=== PATIENT | female | born 1990 | race Native Hawaiian/Other Pacific Islander ===

== ENCOUNTER 2017-03-03 07:41 | Inpatient (IN) ==
[2017-03-03] MEDS ORDERED: PEPCID PO PRN (08:15)
[2017-03-03] MEDS ORDERED: SODIUM CHLORIDE 0.9% INJ SCH (08:15)
[2017-03-03] MEDS ORDERED: REGLAN PO ONE (08:15)
[2017-03-03] MEDS ORDERED: KEFZOL 1 GM/D5W 1 GM/50 ML IVPB IV PRN (08:15)
[2017-03-03] MEDS ORDERED: TYLENOL PO PRN (08:15)
[2017-03-03] MEDS ORDERED: STADOL IV PRN (08:15)
[2017-03-03] MEDS ORDERED: PEPCID IV PRN (08:15)
[2017-03-03] MEDS ORDERED: ZOFRAN IV PRN (08:15)
[2017-03-03] MEDS ORDERED: PITOCIN 30 UNITS/LR 30 UNITS/500 ML IV.SOLN IV SCH (08:15)
[2017-03-03] MEDS ORDERED: PEPCID PO ONE (08:15)
[2017-03-03] MEDS ORDERED: LR 500 ML IV ONE (08:15)
[2017-03-03 08:21] LABS: URINE SOURCE VOIDED
[2017-03-03 08:42] LABS: BILIRUBIN URINE NEGATIVE (NEGATIVE); BLOOD URINE 1+ (NEGATIVE); CLARITY CLEAR (CLEAR); COLOR YELLOW; GLUCOSE URINE NEGATIVE (NEGATIVE); LEUKOCYTES URINE NEGATIVE (NEGATIVE); NITRITE URINE NEGATIVE (NEGATIVE); PROTEIN URINE NEGATIVE (NEGATIVE); UROBILINOGEN URINE NORMAL
[2017-03-03] MEDS: LR 1,000 ML IV SCH ×2 (08:45→09:58)
[2017-03-03 08:55] LABS: MANUAL DIFF NEEDED? NO
[2017-03-03] MEDS ORDERED: MINERAL OIL MISC ONE ×2 (08:55→13:00)
[2017-03-03] MEDS ORDERED: XYLOCAINE-MPF 1% INJ ONE ×2 (08:56→13:00)
[2017-03-03 08:57] LABS: BASO% 0.2 % (0.0-0.8); EOS# 0.29 X1000 (0.0-0.7); EOS% 2.3 % (0.0-10.0); HEMATOCRIT 38.6 % (37.0-47.0); HEMOGLOBIN 13.3 g/dL (12.0-16.0); IMM GRAN# 0.04 X1000 (0.0-0.04); IMM GRAN% 0.3 % (0.0-0.5); LYMPH# 1.82 X1000 (1.2-3.4); LYMPH% 14.1 % (20.5-51.1); MCH 30.9 PG (27-31); MCHC 34.5 g/dL (33-37); MCV 89.6 FL (81-99); MONO# 0.88 X1000 (0.11-0.59); MONO% 6.8 % (1.7-9.3); MPV 11.2 FL (7.4-10.4); NEUT% 76.3 % (42.2-75.2); PLT 207 X1000 (130-400); RBC 4.31 XMIL (4.2-5.4)
[2017-03-03] MEDS ORDERED: FENTANYL-BUPIV-NS 2 MCG-0.1% 200 ML EPIDURAL PRN (09:09)
[2017-03-03] MEDS ORDERED: PITOCIN 30 UNITS/LR 30 UNITS/500 ML IV.SOLN IV ONE (16:01)
[2017-03-03] MEDS ORDERED: PERI MEDS (DERMOPLAST/NUPERCAINAL/TUCKS) MISC PRN (16:01)
[2017-03-03] MEDS ORDERED: PERCOCET-10 PO PRN (16:01)
[2017-03-03] MEDS ORDERED: PERCOCET-5 PO PRN (16:01)
[2017-03-03] MEDS ORDERED: PITOCIN IM PRN (16:01)
[2017-03-03] MEDS ORDERED: XYLOCAINE-MPF 1% INJ PRN (16:01)
[2017-03-03] MEDS ORDERED: BOOSTRIX VACCINE IM ONE (16:01)
[2017-03-03] MEDS ORDERED: M-M-R II VACCINE SUBQ ONE (16:01)
[2017-03-03] MEDS ORDERED: MINERAL OIL PO PRN (16:01)
[2017-03-03] MEDS ORDERED: MOTRIN PO PRN (16:01)
[2017-03-03] MEDS ORDERED: BENADRYL IV PRN (16:01)
[2017-03-03] MEDS ORDERED: HYDROXYZINE IM PRN (16:01)
[2017-03-03] MEDS ORDERED: HYDROXYZINE PO PRN (16:01)
[2017-03-03] MEDS ORDERED: CYTOTEC PO PRN (16:01)
[2017-03-03] MEDS ORDERED: AMBIEN PO PRN (16:01)
[2017-03-03] MEDS ORDERED: BENADRYL PO PRN (16:01)
[2017-03-03] MEDS ORDERED: PITOCIN 20 UNITS/LR 20 UNITS/1,000 ML IV.SOLN IV SCH (16:01)
[2017-03-03] MEDS: PERICOLACE PO SCH (20:43)
[2017-03-04 06:23] LABS: UR AMPHETAMINES QUAL NONE DETECTED (NONE DETECT); UR BARBITUATES QUAL NONE DETECTED (NONE DETECT); UR BENZODIAZEPIN QUAL NONE DETECTED (NONE DETECT); UR CANNABINOIDS QUAL NONE DETECTED (NONE DETECT); UR COCAINE QUAL NONE DETECTED (NONE DETECT); UR MDMA QUAL NONE DETECTED (NONE DETECT); UR METHADONE QUAL NONE DETECTED (NONE DETECT); UR METHAMPHETAMINE QUAL NONE DETECTED (NONE DETECT); UR OPIATES QUAL NONE DETECTED (NONE DETECT); UR OXYCODONE QUAL NONE DETECTED (NONE DETECT); UR PCP QUAL NONE DETECTED (NONE DETECT); UR TCA QUAL NONE DETECTED (NONE DETECT)
[2017-03-04 07:09] LABS: HEMOGLOBIN 11.3 g/dL (12.0-16.0); MCH 30.3 PG (27-31); MCHC 33.2 g/dL (33-37); MCV 91.2 FL (81-99); MPV 11.2 FL (7.4-10.4); RBC 3.73 XMIL (4.2-5.4)
--- NOTE | 2017-03-04 13:10 | PROGRESS NOTE ---
DATE: 03/04/2017 SUBJECTIVE: She is day 1. She communicates, no complaints. She seems to be in very good spirits. OBJECTIVE: Vital signs: On examination, vital signs reveal temp 97.6 degrees, blood pressure 103/64. General: She is in no distress. Neck: Supple. Lungs: Clear. Heart: Regular sinus rhythm. Abdomen: Slightly distended. Uterus is firm, nontender. Extremities: No cyanosis, clubbing, or edema in her extremities. LABS: Hemoglobin and hematocrit day 1. PLAN: Continue routine care. Expect discharge in the morning. cc: MD Cornelius Vasquez MD
[2017-03-04] MEDS: PERICOLACE PO SCH (20:58)
[2017-03-05 08:08] VITALS: BP 102/56
== END 2017-03-05 11:50 | disposition home or self-care (01) ==
LOC: P.OPLD 07:41 → P.LD 07:47 → P.WC 20:27
PROVIDERS: ADMIT Obstetrics & Gynecology; ATTEND Obstetrics & Gynecology